=== PATIENT | male | born 1970 ===

== ENCOUNTER 2018-11-08 07:15 | Day surgery (SDC) | payer OTHER ==
[~2018-11-08 07:15] MED LIST: ATIVAN0.5 MG PO; EFFEXOR XR150 MG PO; LAMICTAL200 M1 PO; PANADOL EXTRA500 MG PO; REMERON15 M1 PO
== END 2018-11-08 19:10 | disposition home or self-care (01) ==
LOC: CIR.AMB 07:15
DX: K64.8 Other hemorrhoids (principal); K64.4 Residual hemorrhoidal skin tags